=== PATIENT | male | born 1990 | race Caucasian/White ===

== ENCOUNTER 2016-11-10 18:06 | Emergency (ER) | payer BC ==
[~2016-11-10] VITALS: Ht 175.3 cm; Wt 82.4 kg
[~2016-11-10 18:06] MED LIST: BACT800T5 PO; CEPH500C3 PO; DICL75 PO
[2016-11-10 18:18] VITALS: BP 138/84; PULSE 87; RESP 16; TEMP 98.5; O2SAT 99
[2016-11-10 18:40] LABS: BLOOD, URINE TRACE (NEG); GLUCOSE,URINE NEG (NEG); KETONE, URINE NEG (NEG); NITRITE,URINE NEG (NEG); PH, URINE 5.5 (5.0-8.5)
[2016-11-10 18:48] LABS: URINE COLOR YELLOW (YELLW/STRAW)
[2016-11-10 18:49] LABS: COMMENT (UR) CULTURE INDICATED; CULTURE IF INDICATED CULTURE INDICATED; RBC, URINE 0-3 /hpf (0-3); SQUAMOUS EPITHELIAL CELL URINE 0-5 /hpf (0-5); WBC, URINE 15-19 /hpf (0-5)
[2016-11-10 19:20] VITALS: BP 144/84; PULSE 93; RESP 18; TEMP 98.3; O2SAT 99
[2016-11-10] MEDS ORDERED: AZITHROMYCIN 250 MG TAB PO ONE (20:15)
[2016-11-10] MEDS ORDERED: cefTRIAXone 250 MG VIAL IM ONE (20:15)
[2016-11-10] MEDS ORDERED: SODIUM CHLORIDE 0.9% FLUSH 5 ML FLUSH IVF PRN (20:15)
[2016-11-10] MEDS ORDERED: LIDOCAINE HCL 1% 50 ML VIAL XX ONE (20:15)
[2016-11-10 20:20] VITALS: BP 131/75; PULSE 82; RESP 18; O2SAT 99
[2016-11-10] MEDS ORDERED: CEPH-460 PO (20:45)
[2016-11-10] MEDS ORDERED: PHEN0.4T PO (20:45)
--- NOTE | 2016-11-10 20:46 | PD ---
HPI Chief Complaint: Complaint Time Seen by Provider: 20:05 Travel History International Travel<30 days: No Contact w/Intl Traveler<30days: No Traveled to known affect area: No History of Present Illness HPI 26-year-old male presents to the emergency department by private transportation for complaint of 3 weeks of burning with urination. Patient rates pain 5-6/10 in intensity with urination. Patient otherwise denies any pain. Patient is been using [id number] Azo pills and cranberry juice with minimal relief. Patient denies fever chills nausea vomiting flank pain or hematuria. Patient's had no penile discharge. Patient is sent reactive with one partner. Patient does not use condoms. Patient denies any penile redness or irritation. Patient denies any testicular pain, no scrotal mass or swelling.. Patient denies any trauma. Patient denies any previous history of urethritis epididymoorchitis or UTI. Patient is not diabetic. PFSH Past Medical History Narrative Medical Negative past history negative surgical history no tobacco use nursing notes reviewed Medical History: Denies Significant Hx Diminished Hearing: No Influenza Vaccination: No Past Surgical History Surgical History: No Previous Surgery Social History Alcohol Use: No Tobacco Use: No (denies) Substance Use: No Allergies-Medications (Allergen,Severity, Reaction): Uncoded Allergies: ANTIBIOTIC UNKNOWN (Allergy, Unknown, 02/28/12) Comments Patient unable to confirm and an reportedly per patient mother notes no medication allergies Reported Meds & Prescriptions Reported Meds & Active Scripts Active Pyridium (Phenazopyridine HCl) 100 Mg Tab 100 Mg PO Q8H PRN Keflex (Cephalexin) 500 Mg Cap 500 Mg PO Q6H 7 Days Narrative Medication None Review of Systems Except as stated in HPI: all other systems reviewed are Neg General / Constitutional: No: Fever, Chills HENT: No: Congestion Cardiovascular: No: Chest Pain or Discomfort Gastrointestinal: No: Nausea, Vomiting, Abdominal Pain Genitourinary: Positive: Urgency, Frequency, Dysuria, No: Hematuria, Flank Pain, Discharge Musculoskeletal: No: Myalgias, Arthralgias Skin: No Rash Neurologic: No: Weakness Psychiatric: No: Anxiety Hematologic/Lymphatic: No: Lymph Node Enlargement Physical Exam Narrative GENERAL: Well-developed well-nourished male in no acute distress no respiratory distress SKIN: Warm and dry. HEAD: Normocephalic. EYES: No scleral icterus. No injection or drainage. NECK: Supple, trachea midline. No JVD or lymphadenopathy. CARDIOVASCULAR: Regular rate and rhythm without murmurs, gallops, or rubs. RESPIRATORY: Breath sounds equal bilaterally. No accessory muscle use. GASTROINTESTINAL: Abdomen soft, non-tender, nondistended. : Circumcised male with bilateral descended testicles positive cremasteric reflex no edema or erythema or urethral discharge. No hernia on exam. No scrotal edema or erythema or tenderness no testicular mass or tenderness. MUSCULOSKELETAL: No cyanosis, or edema. BACK: Nontender without obvious deformity. No CVA tenderness. Data Data Last Documented VS Orders Urinalysis - C+S If Indicated (11/10/16 18:21) Urine Culture (11/10/16 18:25) Gc And Chlamydia Pcr (11/10/16 20:05) Azithromycin (Zithromax) (11/10/16 20:15) Ceftriaxone Inj (Rocephin Inj) (11/10/16 20:15) Sodium Chloride 0.9% Flush (Ns Flush) (11/10/16 20:15) Lidocaine 1% Inj (50 Ml) (Xylocaine 1% I (11/10/16 20:15) Labs Laboratory Tests Test 11/10/16 18:25 Chlamydia trachomatis DNA DETECTED (PCR) Neisseria gonorrhoeae DNA NOT DETECTED (PCR) MDM Medical Decision Making Medical Screen Exam Complete: Yes Emergency Medical Condition: Yes Medical Record Reviewed: Yes Interpretation(s) Urinalysis: Trace Leukocyte Estrace, small blood, no RBCs, positive WBCs, no bacteria, culture indicated Differential Diagnosis Urethritis, UTI, epididymoorchitis; also to consider torsion, mass Narrative Course Urinalysis and GC/chlamydia PCR ordered Urinalysis shows white blood cells; culture indicated; PCR GC/chlamydia pending Patient administered Rocephin 250 mg IM along with azithromycin 1 g by mouth Diagnosis Primary Impression: Dysuria Referrals: Primary Care Physician call for appointment Patient Instructions: General Instructions Additional Instructions: Complete course of antibiotic as prescribed No sexual on a course 5 days Increase fluid hydration Return to the emergency department for any concerns or change in condition May use as needed acetaminophen/Tylenol every 4 hours for fever 100.4F or greater AND/OR ibuprofen/Advil/Motrin every 6-8 hours as needed for fever 100.4 F or greater or for pain associated with inflammation Med/Other Pt SpecificInfo: Prescription(s) given Scripts Phenazopyridine (Pyridium)100 Mg [id number] Mg PO Q8H PRN (DYSURIA) #6 TAB Ref 0 Prov:Neha Hernández MD 11/10/16 Cephalexin (Keflex)500 Mg [id number] Mg PO Q6H 7 Days Ref 0 Prov:Neha Hernández MD 11/10/16 Disposition: 01 DISCHARGE HOME Condition: Stable Neha Hernández MD Nov 10, 2016 20:46 bacteria, culture indicated Differential Diagnosis Urethritis, UTI, epididymoorchitis; also to consider torsion, mass Narrative Course Urinalysis and GC/chlamydia PCR ordered Urinalysis shows white blood cells; culture indicated; PCR GC/chlamydia pending Patient administered Rocephin 250 mg IM along with azithromycin 1 g by mouth Diagnosis Primary Impression: Dysuria Referrals: Primary Care Physician call for appointment Patient Instructions: General Instructions Additional Instructions: Complete course of antibiotic as prescribed No sexual on a course 5 days Increase fluid hydration Return to the emergency department for any concerns or change in condition May use as needed acetaminophen/Tylenol every 4 hours for fever 100.4F or greater AND/OR ibuprofen/Advil/Motrin every 6-8 hours as needed for fever 100.4 F or greater or for pain associated with inflammation Med/Other Pt SpecificInfo: Prescription(s) given Scripts Phenazopyridine (Pyridium)100 Mg [id number] Mg PO Q8H PRN (DYSURIA) #6 TAB Ref 0 Prov:Neha Hernández MD 11/10/16 Cephalexin (Keflex)500 Mg [id number] Mg PO Q6H 7 Days Ref 0 Prov:Neha Hernández MD 11/10/16 Neha Hernández MD Nov 10, 2016 20:46
[2016-11-10 21:54] VITALS: BP 126/82; PULSE 76; RESP 18; O2SAT 100
[2016-11-11 01:03] LABS: CHLAMYDIA PCR DETECTED (NOT DETECT); NEISSERIA PCR NOT DETECTED (NOT DETECT)
== END 2016-11-10 21:58 | disposition home or self-care (01) ==
LOC: PHED 18:06
DX: R30.0 Dysuria (principal)
CPT/HCPCS: 81001; 87086; 87491; 87591; 96372; 99283; J0696